=== PATIENT | male | born 1980 | race Caucasian/White ===

== ENCOUNTER → 2022-04-09 15:28 | Outpatient (CLI) | payer BC, SELFPAY ==
--- NOTE | ~2022-04-09 | XR_ITS ---
XR knee LT 2V DATE: 04/09/2022 15:50 INDICATION: Left knee pain TECHNIQUE: Standing AP and lateral views COMPARISON: None FINDINGS: There is distention of the suprapatellar bursa consistent with joint effusion. Joint spaces are preserved. No fracture or dislocation, periosteal reaction or bone destruction. No radiopaque intra-articular lo ose body or chondrocalcinosis. IMPRESSION: Knee joint effusion Reviewed, dictated and finalized at location [facility]. ERABILITY RESEARCHER IMPRESSION: Knee joint effusion
== END ==
PROVIDERS: PCP Family Medicine; Visit Provider Nurse Practitioner Family
DX: M25.462 Effusion, left knee (principal)
CPT/HCPCS: 73560

== ENCOUNTER 2022-05-10 08:25 | Outpatient (CLI) | payer BC, SELFPAY ==
--- NOTE | ~2022-05-10 | MR_ITS ---
MRI of the left knee Clinical history: Pain Technique: Coronal proton density and proton density-weighted images, sagittal proton-density and T2 fat-sat images, and axial proton-density fat-saturated images were acquired. Findings: Anterior and posterior cruciate ligaments are intact. Medial collateral ligament and the la teral collateral ligament complex are intact. Popliteus tendon is intact. Medial and lateral menisci are intact, without evidence of tear. There is a focal high-grade chondral lesion at the central aspect of the medial femoral condyle with focal subchondral marrow edema. Otherwise, remaining articular cartilage is well preserved throughout the knee. No other bone marrow signal abnormality seen. Extensor mechanism is intact. No significant joint effusion, and no Vasquez's cyst. Impression: Focal high-grade chondral lesion at the central aspect of the medial femoral condyle with underlying presumed reactive subchondral marrow edema. Correlate for focal acute impaction injury based on histo ry. No ligamentous injury or meniscal tear. Reviewed, dictated and finalized at [facility]. [employer]ION[employer] APPLICATION DESIGNER Impression: Focal high-grade chondral lesion at the central aspect of the medial femoral co ndyle with underlying presumed reactive subchondral marrow edema. Correlate for focal acute impaction injury based on history. No ligamentous injury or meniscal tear.
== END 2022-05-10 08:26 | disposition home or self-care (01) ==
PROVIDERS: PCP Family Medicine; Visit Provider Physician Assistant Medical
DX: M91.12 Juvenile osteochondrosis of head of femur [Legg-Calve-Perthes], left leg (principal); M25.562 Pain in left knee
CPT/HCPCS: 73721